=== PATIENT | female | born 1995 ===

== ENCOUNTER 2018-02-21 02:02 | Emergency (ER) | payer OTHER ==
[~2018-02-21] VITALS: Ht 157.5 cm; Wt 63.0 kg
[2018-02-21] MEDS ORDERED: mag hydrox/Alum hydrox/simeth 30ml oral suspension PO ONE (02:20)
[2018-02-21] MEDS ORDERED: LIDOcaine Viscous 15ml cup MM PRN (02:20)
[2018-02-21] MEDS ORDERED: famotidine 10mg tablet PO SCH (02:20)
[2018-02-21] MEDS ORDERED: famotidine 20mg tablet PO SCH (02:37)
[2018-02-21] MEDS ORDERED: simethicone 125mg capsule PO SCH (03:00)
[2018-02-21 03:08] VITALS: BP 130/73
[2018-02-21] MEDS ORDERED: ONDA4TAB6 PO (03:25)
[2018-02-21] MEDS ORDERED: SIME125C87 CORPAK (03:25)
== END 2018-02-21 03:37 | disposition home or self-care (01) ==
LOC: ER 02:03
DX: K29.70 Gastritis, unspecified, without bleeding (principal); K52.9 Noninfective gastroenteritis and colitis, unspecified; Z79.899 Other long term (current) drug therapy
CPT/HCPCS: 71045; 93005; 99283